=== PATIENT | male | born 1995 | race African-American/Black ===

== ENCOUNTER 2019-10-19 16:19 | Emergency (ER) | payer OTHER ==
[~2019-10-19] VITALS: Ht 182.9 cm; Wt 52.2 kg
[2019-10-19 17:31] VITALS: BP 117/82
== END 2019-10-19 18:18 | disposition home or self-care (01) ==
LOC: ER 16:19
DX: B37.0 Candidal stomatitis (principal); J45.909 Unspecified asthma, uncomplicated